=== PATIENT | female | born 1965 | race Caucasian/White ===

== ENCOUNTER 2019-05-27 18:48 | Emergency (ER) | payer BC ==
--- NOTE | 2019-05-27 19:05 | EDM.PDOC ---
ED HPI GENERAL MEDICAL PROBLEM - General Chief Complaint: Upper Extremity Injury/Pain Stated Complaint: RIGHT WRIST POSS BROKEN Time Seen by Provider: 05/27/19 18:58 Source of Information: Reports: Patient History Limitations: Reports: No Limitations - History of Present Illness INITIAL COMMENTS - FREE TEXT/NARRATIVE: This 54 yo female patient reports to the ED with right wrist pain. The patient reports she slipped and fell on her wrist after shoveling snow. The patient reports increased pain in area. The patient reported to the ED with an ice pack on the wrist. Onset: Today Onset Date: 05/27/19 Onset Time: 17:30 Duration: Constant Location: Reports: Upper Extremity, Right Quality: Reports: Ache Severity: Moderate Improves with: Reports: None Worsens with: Reports: None Context: Reports: Activity (Ground level fall) Treatments MEDICAL TECHNICIAN ASSISTANT: Reports: Cold Therapy, Splint(s) - Related Data Allergies Allergy/AdvReac Type Severity Reaction Status Date / Time Penicillins Allergy Hives Verified 05/27/19 18:56 Home Meds: Home Meds Levothyroxine 125 mcg PO DAILY 05/27/19 [History] Lifitegrast [Xiidra] 1 applic EYEBOTH BEDTIME 05/27/19 [History] Review of Systems - Review of Systems Review Of Systems: Comprehensive ROS is negative, except as noted in HPI. ED EXAM, GENERAL - Physical Exam Exam: See Below Exam Limited By: No Limitations General Appearance: Alert, WD/WN, Mild Distress Eye Exam: Bilateral Eye: EOMI, Normal Inspection, PERRL Ears: Normal External Exam, Hearing Grossly Normal Nose: Normal Inspection, No Blood Throat/Mouth: Normal Lips, Normal Teeth, Normal Voice Head: Atraumatic, Normocephalic Neck: Normal Inspection, Supple, Non-Tender, Full Range of Motion Respiratory/Chest: No Respiratory Distress, Lungs Clear, Normal Breath Sounds, No Accessory Muscle Use, Chest Non-Tender Cardiovascular: Normal Peripheral Pulses, Regular Rate, Rhythm (Female) Exam: Deferred Rectal (Female) Exam: Deferred Extremities: Arm Pain (right wrist pain) Neurological: Alert, Oriented, Normal Cognition, Normal Gait, Normal Reflexes Psychiatric: Normal Affect, Normal Mood Skin Exam: Warm, Dry, Intact, Normal Color, No Rash Lymphatic: No Adenopathy Course - Vital Signs Last Recorded V/S: Last Vital Signs Temp 36.0 C 05/27/19 19:05 Pulse 82 05/27/19 19:05 Resp 16 05/27/19 19:05 BP 158/68 H 05/27/19 19:05 Pulse Ox 100 05/27/19 19:05 - Orders/Labs/Meds Orders: Active Orders 24 hr Category Date Time Status Wrist Comp Min 3V Rt [CR] Urgent Exams 05/27/19 19:00 Ordered Departure - Departure Time of Disposition: 19:32 Disposition: Home, Self-Care 01 Condition: Fair Clinical Impression: Fracture of right distal radius Qualifiers: Encounter type: initial encounter Fracture type: closed Fracture morphology: other fracture Qualified Code(s): S52.591A - Other fractures of lower end of right radius, initial encounter for closed fracture - Discharge Information *PRESCRIPTION DRUG MONITORING PROGRAM REVIEWED*: Not Applicable *COPY OF PRESCRIPTION DRUG MONITORING REPORT IN PATIENT PERCY: Not Applicable Instructions: Forearm Fracture, [id number] Forms: ED Department Discharge Care Plan Goals: The patient was advised of the examination and x-ray results during the visit. The patient's right wrist was placed in a splint for immobilization. The patient was encouraged to follow-up with an ancillary specialist in about 1 week for continued evaluation and further management. If the patient has any additional symptoms or concerns, the patient should either return to the emergency department or visit her primary care facility. Sepsis Event Note - Focused Exam Vital Signs: Vital Signs Temp Pulse Resp BP Pulse Ox 05/27/19 19:05 36.0 C 82 16 158/68 H 100 Date Exam was Performed: 05/27/19 Time Exam was Performed: 19:32 - My Orders Last 24 Hours: My Active Orders 05/27/19 19:00 Wrist Comp Min 3V Rt [CR] Urgent - Assessment/Plan Last 24 Hours: My Active Orders 05/27/19 19:00 Wrist Comp Min 3V Rt [CR] Urgent
== END 2019-05-27 19:45 | disposition home or self-care (01) ==
LOC: DL.ED 18:48
DX: S52.591A Other fractures of lower end of right radius, initial encounter for closed fracture (principal); W01.0XXA Fall on same level from slipping, tripping and stumbling without subsequent striking against object, initial encounter; Y93.H1 Activity, digging, shoveling and raking
CPT/HCPCS: 29125; 73110-RT; 99283-25